=== PATIENT | male | born 1955 | race Hispanic/Latino ===

== ENCOUNTER 2021-06-07 07:32 | Observation (INO) | payer OTHER ==
[2021-06-06 10:24] LABS: BASOPHILS % (AUTO) 0.4 % (0.0-5.0); EOSINOPHILS % (AUTO) 2.4 % (0.0-8.0); HEMATOCRIT 38.6 % (42-54); LYMPHOCYTES % (AUTO) 31.1 % (21.0-51.0); MEAN CORPUSCULAR HEMOGLOBIN 31.8 pg (27.0-33.0); MEAN CORPUSCULAR HGB CONC 32.6 g/dL (32.0-36.0); MEAN CORPUSCULAR VOLUME 97.5 fL (79-99); MONOCYTES % (AUTO) 11.1 % (3.0-13.0); NEUTROPHILS % (AUTO) 54.6 % (40.0-77.0); PLATELET COUNT (AUTO) 201 K/uL (130-400); RED BLOOD CELL COUNT(AUTO) 3.96 MIL/uL (4.50-6.20); RED CELL DISTRIBUTION WIDTH 12.3 % (11.0-15.5); WHITE BLOOD COUNT (AUTO) 7.2 K/uL (4.8-10.8)
[2021-06-06 10:29] LABS: APPEARANCE,URINE CLEAR (CLEAR); BILIRUBIN,URINE NEGATIVE (NEGATIVE); COLOR,URINE YELLOW (YELLOW); GLUCOSE, URINE (UA) NEGATIVE (NEGATIVE); KETONES,URINE NEGATIVE (NEGATIVE); LEUKOCYTE ESTERASE ,URINE NEGATIVE (NEGATIVE); NITRATE,URINE NEGATIVE (NEGATIVE); OCCULT BLOOD,URINE NEGATIVE (NEGATIVE); PROTEIN,URINE NEGATIVE (NEGATIVE); UROBILINOGEN,URINE 0.2 mg/dL (0.2-1.0)
[2021-06-06 10:37] LABS: CREATININE 0.7 mg/dL (0.5-1.5); POTASSIUM 4.4 mmol/L (3.5-5.1)
[2021-06-06 10:58] LABS: INR 1.05 (0.85-1.15); PROTHROMBIN TIME 10.9 SEC (9.6-11.6)
[2021-06-06 13:14] VITALS: BP 198/96
[~2021-06-07] VITALS: Ht 180.3 cm; Wt 136.5 kg
[2021-06-07] VITALS (23 sets, daily range): BP systolic 145–211; BP diastolic 80–112
[~2021-06-07 07:32] MED LIST: ATOR10 PO; CEFAZOLIN SODIUM 1 GM VIAL IVP SCH; LISI40TA9 PO; MVIT PO; OMEG-148 PO; VITAMIN D2 PO
[2021-06-07] MEDS ORDERED: 0.9%NACL 1000ML 0 ML IV ONE (08:12)
[2021-06-07] MEDS ORDERED: LACTATED RINGERS 1000ML 1,000 ML IV ONE (08:21)
[2021-06-07] MEDS ORDERED: MEPERIDINE-PF 25 MG/ML SYG ONE ×2 (08:39→15:30)
[2021-06-07] MEDS ORDERED: CEFAZOLIN SODIUM 1 GM VIAL ONE (10:11)
[2021-06-07] MEDS ORDERED: TRANEXAMIC ACID 1000MG/10ML ONE ×2 (10:11→14:59)
[2021-06-07] MEDS ORDERED: LIDOCAINE PF 100MG/5ML (2%) SYRINGE 5ML ONE (10:26)
[2021-06-07] MEDS ORDERED: SUCCINYLCHOLINE CHLORIDE 20 MG/ML 10 ML VIAL ONE (10:26)
[2021-06-07] MEDS ORDERED: PROPOFOL 10 MG/ML 20ML VIAL IV ONE (10:26)
[2021-06-07] MEDS ORDERED: ROCURONIUM 10MG/1ML SYR 10 MG/ML ML ONE (10:26)
[2021-06-07] MEDS ORDERED: ROPIVACAINE 0.5% 5MG/ML 30ML IJ ONE (10:28)
[2021-06-07] MEDS ORDERED: KETAMINE HCL 50MG/ML 10ML VIAL IJ ONE (10:29)
[2021-06-07] MEDS ORDERED: 0.9%NACL 10ML VIAL ONE (10:50)
[2021-06-07] MEDS ORDERED: MIDAZOLAM HCL 1 MG/ML 2ML VIAL ONE (10:51)
[2021-06-07] MEDS ORDERED: FENTANYL CITRATE PF 50 MCG/1 ML 2ML VIAL ONE (11:08)
[2021-06-07] MEDS ORDERED: CEFAZOLIN SODIUM 3 GM VIAL IV ONE (11:35)
[2021-06-07] MEDS ORDERED: NEOSTIGMINE 5MG/5ML SYR IV ONE (13:39)
[2021-06-07] MEDS ORDERED: GLYCOPYRROLATE 1 MG/5 ML SYRINGE ONE (13:39)
[2021-06-07] MEDS ORDERED: ONDANSETRON 4MG INJ ONE (13:40)
[2021-06-07] MEDS ORDERED: DiphenhydrAMINE HCL 50 MG/ML VIAL IVP PRN (14:00)
[2021-06-07] MEDS ORDERED: POTASSIUM CHLORIDE 20MEQ/100ML 100 ML IV PRN (14:00)
[2021-06-07] MEDS: ACETAMINOPHEN 500 MG TABLET PO SCH ×2 (14:00→19:59)
[2021-06-07] MEDS ORDERED: TEMAZEPAM 15 MG CAPSULE PO PRN (14:00)
[2021-06-07] MEDS: 0.9%NACL 1000ML 1,000 ML IV SCH ×2 (14:00→21:15)
[2021-06-07] MEDS ORDERED: KCL 20 MEQ ERTAB PO PRN (14:00)
[2021-06-07] MEDS ORDERED: LIDOCAINE HCL-MPF 1% 2ML VIAL IV PRN (14:00)
[2021-06-07] MEDS ORDERED: OXYCODONE HCL 5 MG TAB PO PRN (14:00)
[2021-06-07] MEDS ORDERED: POTASSIUM CHLORIDE 10% ELIXIR 20 MEQ/15 ML UDCUP PO PRN (14:00)
[2021-06-07] MEDS ORDERED: ONDANSETRON 4MG INJ IVP PRN (14:00)
[2021-06-07] MEDS ORDERED: FERROUS FUMARATE 324 MG TABLET PO PRN (14:00)
[2021-06-07] MEDS ORDERED: CEFAZOLIN SODIUM 3 GM in DEXTROSE 5%-WATER 100 ML IVP SCH (14:00)
[2021-06-07] MEDS ORDERED: CALCIUM CARB 500MG PO PRN (14:00)
[2021-06-07] MEDS ORDERED: LABETALOL 20MG VIAL IV ONE (15:22)
[2021-06-07] MEDS: OXYCODONE HCL 5 MG TAB PO PRN ×2 (16:35→20:38)
[2021-06-07] MEDS: KETOROLAC 15MG/ML VIAL (15MG/ML) IV PRN (17:17)
[2021-06-07] MEDS ORDERED: HYDRALAZINE 20MG/ML VIAL IV ONE (18:00)
[2021-06-07] MEDS: HYDROMORPHONE 1 MG INJ IVP PRN (18:12)
[2021-06-07] MEDS: FAMOTIDINE 20MG TAB PO SCH (19:58)
[2021-06-07] MEDS: PREGABALIN 25 MG CAP PO SCH (19:58)
[2021-06-07] MEDS: CELECOXIB 200 MG CAP PO SCH (19:58)
[2021-06-07] MEDS: CEFAZOLIN SODIUM 3 GM in DEXTROSE 5%-WATER 100 ML IVP SCH (20:15)
[2021-06-08] VITALS: BP 136/78
[2021-06-08] MEDS: OXYCODONE HCL 5 MG TAB PO PRN ×4 (02:36→20:05)
[2021-06-08 03:43] LABS: HEMATOCRIT 31.1 % (42-54); MEAN CORPUSCULAR HEMOGLOBIN 32.9 pg (27.0-33.0); MEAN CORPUSCULAR HGB CONC 32.5 g/dL (32.0-36.0); MEAN CORPUSCULAR VOLUME 101.3 fL (79-99); RED BLOOD CELL COUNT(AUTO) 3.07 MIL/uL (4.50-6.20); RED CELL DISTRIBUTION WIDTH 12.7 % (11.0-15.5); WHITE BLOOD COUNT (AUTO) 7.5 K/uL (4.8-10.8)
[2021-06-08] MEDS: 0.9%NACL 1000ML 1,000 ML IV SCH (03:53)
[2021-06-08] MEDS: CEFAZOLIN SODIUM 3 GM in DEXTROSE 5%-WATER 100 ML IVP SCH (03:54)
[2021-06-08 04:00] VITALS: BP 138/77
[2021-06-08 04:00] LABS: CREATININE 0.8 mg/dL (0.5-1.5); POTASSIUM 3.7 mmol/L (3.5-5.1)
[2021-06-08] MEDS: ACETAMINOPHEN 500 MG TABLET PO SCH ×3 (05:14→20:04)
[2021-06-08] MEDS: HYDROMORPHONE 1 MG INJ IVP PRN (06:31)
[2021-06-08] MEDS: KETOROLAC 15MG/ML VIAL (15MG/ML) IV PRN ×2 (07:50→14:21)
[2021-06-08 08:00] VITALS: BP 125/80
[2021-06-08] MEDS: TAMSULOSIN HCL 0.4 MG CAP.ER.24H PO SCH (08:56)
[2021-06-08] MEDS: LISINOPRIL 40 MG TABLET PO SCH (08:56)
[2021-06-08] MEDS: PREGABALIN 25 MG CAP PO SCH ×2 (08:56→20:05)
[2021-06-08] MEDS: APIXABAN 2.5 MG TABLET PO SCH ×2 (10:06→20:05)
[2021-06-08] MEDS: CELECOXIB 200 MG CAP PO SCH ×2 (10:06→20:04)
[2021-06-08] MEDS: FAMOTIDINE 20MG TAB PO SCH ×2 (10:06→20:05)
[2021-06-08] MEDS: ATORVASTATIN 10 MG TABLET PO SCH (10:06)
[2021-06-08] MEDS: POLYETHYLENE GLYCOL 3350 17 GM POWD.PACK PO SCH (10:07)
[2021-06-08] MEDS: TRAMADOL HCL 50 MG TABLET PO PRN (10:08)
[2021-06-08 11:52] VITALS: BP 95/51
[2021-06-08 16:00] VITALS: BP 134/69
[2021-06-08 21:02] VITALS: BP 135/70
[2021-06-09 00:02] VITALS: BP 108/59
[2021-06-09 04:35] VITALS: BP 125/66
[2021-06-09] MEDS: ACETAMINOPHEN 500 MG TABLET PO SCH ×3 (05:01→20:05)
[2021-06-09 08:00] VITALS: BP 124/75
[2021-06-09] MEDS: KETOROLAC 15MG/ML VIAL (15MG/ML) IV PRN (08:07)
[2021-06-09] MEDS: OXYCODONE HCL 5 MG TAB PO PRN ×3 (08:08→20:04)
[2021-06-09] MEDS: TAMSULOSIN HCL 0.4 MG CAP.ER.24H PO SCH (08:10)
[2021-06-09] MEDS: CELECOXIB 200 MG CAP PO SCH ×2 (08:11→20:05)
[2021-06-09] MEDS: FAMOTIDINE 20MG TAB PO SCH ×2 (08:11→20:05)
[2021-06-09] MEDS: ATORVASTATIN 10 MG TABLET PO SCH (08:11)
[2021-06-09] MEDS: APIXABAN 2.5 MG TABLET PO SCH ×2 (08:11→20:05)
[2021-06-09] MEDS ORDERED: AEC81 PO (08:12)
[2021-06-09] MEDS: POLYETHYLENE GLYCOL 3350 17 GM POWD.PACK PO SCH (08:12)
[2021-06-09] MEDS ORDERED: HYDR-4060 PO (08:12)
[2021-06-09] MEDS: PREGABALIN 25 MG CAP PO SCH ×2 (09:00→20:04)
[2021-06-09] MEDS: TRAMADOL HCL 50 MG TABLET PO PRN (11:08)
[2021-06-09 12:00] VITALS: BP 141/73
[2021-06-09] MEDS: LISINOPRIL 40 MG TABLET PO SCH (12:38)
[2021-06-09 20:05] VITALS: BP 139/75
[2021-06-09 23:42] VITALS: BP 127/62
[2021-06-10 04:07] VITALS: BP 116/67
[2021-06-10] MEDS: ACETAMINOPHEN 500 MG TABLET PO SCH ×3 (05:04→21:42)
[2021-06-10 08:16] VITALS: BP 132/64
[2021-06-10] MEDS: POLYETHYLENE GLYCOL 3350 17 GM POWD.PACK PO SCH (08:48)
[2021-06-10] MEDS: CELECOXIB 200 MG CAP PO SCH ×2 (08:49→21:41)
[2021-06-10] MEDS: PREGABALIN 25 MG CAP PO SCH ×2 (08:49→21:40)
[2021-06-10] MEDS: FAMOTIDINE 20MG TAB PO SCH ×2 (08:49→21:40)
[2021-06-10] MEDS: OXYCODONE HCL 5 MG TAB PO PRN ×3 (08:49→21:43)
[2021-06-10] MEDS: ATORVASTATIN 10 MG TABLET PO SCH (08:49)
[2021-06-10] MEDS: TAMSULOSIN HCL 0.4 MG CAP.ER.24H PO SCH (08:49)
[2021-06-10] MEDS: APIXABAN 2.5 MG TABLET PO SCH ×2 (08:50→21:41)
[2021-06-10] MEDS: LISINOPRIL 40 MG TABLET PO SCH (08:50)
[2021-06-10] MEDS ORDERED: BISACODYL 10 MG SUPP.RECT RC PRN (14:00)
[2021-06-10 16:00] VITALS: BP 125/69
[2021-06-10 21:01] VITALS: BP 120/58
[2021-06-11 03:47] VITALS: BP 129/84
[2021-06-11] MEDS: ACETAMINOPHEN 500 MG TABLET PO SCH ×2 (05:31→15:02)
[2021-06-11 08:00] VITALS: BP 122/70
[2021-06-11] MEDS: PREGABALIN 25 MG CAP PO SCH (08:26)
[2021-06-11] MEDS: ATORVASTATIN 10 MG TABLET PO SCH (08:26)
[2021-06-11] MEDS: TAMSULOSIN HCL 0.4 MG CAP.ER.24H PO SCH (08:26)
[2021-06-11] MEDS: POLYETHYLENE GLYCOL 3350 17 GM POWD.PACK PO SCH (08:26)
[2021-06-11] MEDS: LISINOPRIL 40 MG TABLET PO SCH (08:26)
[2021-06-11] MEDS: CELECOXIB 200 MG CAP PO SCH (08:27)
[2021-06-11] MEDS: FAMOTIDINE 20MG TAB PO SCH (08:27)
[2021-06-11] MEDS: OXYCODONE HCL 5 MG TAB PO PRN (08:27)
[2021-06-11] MEDS: APIXABAN 2.5 MG TABLET PO SCH (08:29)
[2021-06-11 12:14] VITALS: BP 143/73
[2021-06-11 16:07] VITALS: BP 162/82
== END 2021-06-11 18:35 ==
LOC: DAH 07:32 → DAHIP 07:33 → DAH 07:33 → 4AH 15:19
PROVIDERS: ADMIT Orthopaedic Surgery; ATTEND Orthopaedic Surgery
DX: M17.12 Unilateral primary osteoarthritis, left knee (principal); Z20.822 Contact with and (suspected) exposure to COVID-19; M23.8X2 Other internal derangements of left knee; R26.89 Other abnormalities of gait and mobility; I10 Essential (primary) hypertension; E78.00 Pure hypercholesterolemia, unspecified; E66.01 Morbid (severe) obesity due to excess calories; Z87.891 Personal history of nicotine dependence; Z79.899 Other long term (current) drug therapy
CPT/HCPCS: 27447; 36415 ×2; 64447; 76942; 80048 ×2; 81003; 85025; 85027; 85610; 87088; 87635; 87641; 96365; 96366; 96375; 96376 ×2; 97039 ×8; 97116 ×7; 97161; 97530 ×3; A4215; A4221; A4222; A4223; A4600; A4649 ×5; A4663; A4930; A9272; C1776; C9803; G0378 ×97; J0330; J0360; J0690 ×5; J1170 ×2; J1885 ×4; J2001; J2175 ×2; J2250; J2405; J2704; J2710; J2795; J3010; J3490 ×5; J7060; J7120 ×2; J7030